=== PATIENT | male | born 1980 | race Caucasian/White ===

== ENCOUNTER 2019-10-10 00:46 | Emergency (ER) | payer OTHER ==
[~2019-10-10] VITALS: Ht 182.9 cm; Wt 91.6 kg
[2019-10-10 00:50] VITALS: BP_SYST 145
[2019-10-10 01:58] VITALS: BP_SYST 145
== END 2019-10-10 01:58 | disposition home or self-care (01) ==
LOC: SED 00:46
DX: J06.9 Acute upper respiratory infection, unspecified (principal); B97.89 Other viral agents as the cause of diseases classified elsewhere; I10 Essential (primary) hypertension
CPT/HCPCS: 99282